=== PATIENT | female | born 1960 | race Caucasian/White ===

== ENCOUNTER → 2019-09-06 | Outpatient (CLI) | payer MEDICARE, MEDICAID ==
[~2019-09-06] MED LIST: BACL10TA2 PO; FAMC250T3 PO; FOLI20CA PO; METH2.5T48 PO; PLAQ200T4 PO; PROHANCE 279.3MG/ML 15ML VIAL (A9576) As Ordered ONE; RANI15TA PO
--- NOTE | 2019-09-06 18:05 | REP ---
MRI brain: 09/06/2019. Indication: Lung carcinoma. Metastatic workup. Comparison: None. Findings: There are no areas of restricted diffusion or pathologic gadolinium enhancement. There is no intracranial mass effect or hydrocephalous. The large intracranial flow voids are unremarkable. There is no evidence of intracranial hemorrhage. No significant signal abnormalities are present within the brainstem or brain parenchyma. There are no areas of pathologic gadolinium enhancement. Impression: No acute intracranial process or evidence of intracranial metastatic disease. Electronically Signed by Sidney Harris DO 09/06/2019 05:56 P
== END ==
LOC: M RAD 15:50
PROVIDERS: ATTEND Nurse Practitioner Family
DX: C34.90 Malignant neoplasm of unspecified part of unspecified bronchus or lung (principal)
CPT/HCPCS: 70553; A9576

== ENCOUNTER → 2019-09-11 | Outpatient (CLI) | payer MEDICARE, MEDICAID ==
[~2019-09-11] MED LIST changes: +DECA4TAB PO; +LIDOCAINE 1% MDV 20ML VIAL As Ordered ONE; +MIDAZOLAM INJ 2 MG/2 ML VIAL (J2250) As Ordered ONE; +OLAN10TA2 PO; +OMEP40CA97 PO; +ONDA8TAB7 PO; +PROC10TA4 PO; -PROHANCE 279.3MG/ML 15ML VIAL (A9576) As Ordered ONE; +ceFAZolin 1GM INJ (J0690 PER 500MG) As Ordered ONE; +diphenhydrAMINE INJ 50MG/ML VIAL (J1200) As Ordered ONE; +fentaNYL 100 MCG/2 ML INJECTION (J3010) As Ordered ONE
--- NOTE | 2019-09-11 14:40 | IRHP ---
[facility] IR Pre-Procedure H & P General Date of Service: Sep 11, 2019 Procedure: Same Day Surgery Interval History and Physical I have seen the patient and reviewed last H & P performed within 30 days. There is no significant interval change. History of Present Illness Chief Complaint The patient is a 59-year-old female admitted with a reason for visit of Lung Ca. PRE-PROCEDURE DIAGNOSIS: lung ca HEART: normal rate. LUNGS: normal breathing at rest. ASA Classification ASA Classification: II-Mild systemic disease Mallampati Score: I NPO: Yes Problems with prior sedation: No Obstructive Sleep Apnea: No Plan moderate sedation Allergies Coded Allergies: infliximab (Verified Allergy, Intermediate, RASH, 08/31/19) latex (Verified Allergy, Intermediate, RASH, 08/31/19) MS - Codeine (Unverified Adverse Reaction, Unknown, INSOMNIA,FEELS ABNORMAL, 02/15/13) Home Medications Scheduled Famciclovir (Famciclovir), 1 TAB PO BID, (Reported) Folic Acid (Folic Acid), 1 CAP PO DAILY, (Reported) Ranitidine Hcl (Ranitidine HCl), 1 TAB PO BID, (Reported) Miscellaneous Medications Baclofen (Baclofen), 10 MG PO, (Reported) Hydroxychloroquine Sulfate (Plaquenil), 200 MG PO, (Reported) Discontinued Medications Methotrexate Sodium (Methotrexate), 8 TAB PO Q7D, (Reported) Discontinued Reason: Pt states not taking VS, I&O, 24H, Fishbone Vital Signs/I&O Vital Signs Date Time Temp Pulse Resp B/P (MAP) Pulse Ox O2 Delivery O2 Flow Rate FiO2 09/11/19 13:56 97.3 98 18 98 Room Air TITI LARA MD Sep 11, 2019 14:40
--- NOTE | 2019-09-11 15:35 | POST-OPPD ---
Postoperative Procedure Note Date Of Procedure: Sep 11, 2019 Time Of Procedure: 15:34 PREOPERATIVE DIAGNOSIS: lung cancer. prior right axillary dissection for breast ca POSTOPERATIVE DIAGNOSIS: lung cancer. prior right axillary dissection for breast ca FINDINGS: patent left IJ PROCEDURE: left IJ port. see full report under imaging tab. SURGEON: xochitl ANESTHESIA: mod sed ESTIMATED BLOOD LOSS: < 5 ml COMPLICATIONS: none POSTOPERATIVE CONDITION: stable TITI LARA MD Sep 11, 2019 15:35
--- NOTE | 2019-09-11 15:57 | REP ---
IR Ultrasound and fluoroscopy-guided port placement. IR Ultrasound of the neck. IR Moderate sedation. Clinical information: Lung cancer. Prior right axillary lymph node dissection for breast cancer . Physician: Dr. Soto. Procedure: The patient was advised of the benefits, risks, and alternatives of the procedure and informed consent was obtained. A time-out was performed with verification of the patient's name, MRN, site of procedure and type of procedure to be performed. The patient was positioned in the supine position on the angiographic table. The site was prepped and draped in the usual sterile fashion. Moderate sedation was performed by the physician including the presence of an independent trained observer who assisted and monitored the patient's level of consciousness and physiologic status. Following the administration of fentanyl and Versed , the physician spent 45 minutes of continuous face to face time with the patient. Ultrasound of the left neck reveals a patent and compressible left internal jugular vein. A drapery inspector radiograph reveals opacities over the right hemithorax . The neck and anterior chest wall were anesthetized with lidocaine. The left internal jugular vein was accessed using a microintroducer needle under ultrasound guidance, via a lateral approach. An 018 wire was advanced into the superior vena cava, the needle was removed and a microsheath was placed. An Amplatz wire was then passed into the inferior vena cava. An incision at the internal jugular vein access site and anterior chest wall were made using a scalpel. An incision was made at the anterior chest wall. A small pocket was created using a combination of blunt and sharp dissection. A tunneling device was then used to pass the catheter from the pocket to the neck puncture site. An 8-Cam[place]onian Angio DataGravity Smart power port was then positioned in the pocket. The catheter was then measured and cut. The introducer sheath was exchanged for a peel-away sheath. The catheter was passed through the peel-away sheath into the internal jugular vein and the peel-away sheath was removed. The port tip was positioned at the cavoatrial junction. The port was then accessed with a Gomez needle. The port flushes and aspirates well. The puncture site in the neck was closed. The chest wall incision was then closed with 2-0 Vicryl and 4-0 Monocryl. Glue and Steri-Strips were applied. A sterile dressing was then applied. The patient tolerated the procedure well and was returned to the PRU in stable condition. Estimated blood loss: <5 ml. Complications: None. Conclusion: 1. Successful placement of an 8-Cam[place]onian Angio dynamics power port via the left internal jugular vein. The port is ready for immediate use. 2. Patient to follow up in IR clinic in 2 weeks. Thank you for this referral. Electronically Signed by Joellen Soto MD 09/11/2019 03:56 P
[2019-09-11 17:00] VITALS: BP 124/82
== END ==
LOC: M IRPRO 13:09
PROVIDERS: ATTEND Nurse Practitioner Family
DX: C34.90 Malignant neoplasm of unspecified part of unspecified bronchus or lung (principal); Z85.3 Personal history of malignant neoplasm of breast; Z88.5 Allergy status to narcotic agent; Z88.8 Allergy status to other drugs, medicaments and biological substances; Z91.040 Latex allergy status
CPT/HCPCS: 36561; 76937; 99152; 99153; C1769; C1788; C1894; J0690; J1200; J2250; J3010

== ENCOUNTER → 2019-10-03 | Outpatient (POV) | payer MEDICARE, MEDICAID ==
[~2019-10-03] VITALS: Ht 165.1 cm; Wt 75.9 kg
[~2019-10-03] MED LIST changes: -LIDOCAINE 1% MDV 20ML VIAL As Ordered ONE; -MIDAZOLAM INJ 2 MG/2 ML VIAL (J2250) As Ordered ONE; -ceFAZolin 1GM INJ (J0690 PER 500MG) As Ordered ONE; -diphenhydrAMINE INJ 50MG/ML VIAL (J1200) As Ordered ONE; -fentaNYL 100 MCG/2 ML INJECTION (J3010) As Ordered ONE
[2019-10-03 10:00] VITALS: BP 129/87
--- NOTE | 2019-10-04 08:19 | IRPN ---
[facility] IR Progress Note IR Progress Note DATE: Oct 03, 2019 FOLLOW-UP: Status post port placement. Patient doing well. No fevers or chills. Port site has not been accessed yet. ON EXAMINATION: Port site looks to be healing well. No tenderness. No redness. No discharge no fluctuance. IMPRESSION: Port site healing well. Has not been used yet. Port was flushed and instilled with heparin today. No further follow-up required unless initiated by patient or referring provider. Thank you for this referral Allergies Coded Allergies: infliximab (Verified Allergy, Intermediate, RASH, 08/31/19) latex (Verified Allergy, Intermediate, RASH, 08/31/19) codeine (Unverified Adverse Reaction, Unknown, insomnia, feels abnormal, 09/18/19) VS,Fishbone, I+O VS, Fishbone, I+O Vital Signs Date Time Temp Pulse Resp B/P (MAP) Pulse Ox O2 Delivery O2 Flow Rate FiO2 10/03/19 10:00 98.0 80 16 129/87 (101) 98 Room Air TITI LARA MD Oct 04, 2019 08:19
== END ==
LOC: M IRPOV 09:40
PROVIDERS: ATTEND Radiology Diagnostic Radiology
DX: Z45.2 Encounter for adjustment and management of vascular access device (principal); Z88.5 Allergy status to narcotic agent; Z88.8 Allergy status to other drugs, medicaments and biological substances; Z91.040 Latex allergy status

== ENCOUNTER → 2019-10-24 | Outpatient (CLI) | payer MEDICARE, MEDICAID ==
[~2019-10-24] MED LIST changes: +ISOVUE-370 76% 100ML VIAL (Q9967) As Ordered ONE
--- NOTE | 2019-10-25 13:00 | REP ---
CT chest with IV contrast: History: Non-small cell lung carcinoma. Adenocarcinoma right middle lobe with lymphadenopathy on neoadjuvant chemotherapy. No comparison CTs are available. There is also a history of prior breast carcinoma. CT contrast dose: 75 mL of intravenous Isovue [address] findings: Postoperative changes are noted in the right breast soft tissues and clips are visible in the right axilla and right breast soft tissues. There is a left-sided Obecas-H-Sjlf catheter noted in place. There is no evidence of pleural or pericardial effusion. No adrenal lesion is seen. Visualized upper abdominal structures are unremarkable. There are postcholecystectomy clips. No hilar or mediastinal mass is seen. No adenopathy is noted. There is a 2.2 cm ground-glass opacity nodule in the right upper lobe in a peribronchovascular distribution. This merits followup. There are smaller ground-glass opacities noted elsewhere in the right upper lobe and there are two ill-defined ground-glass opacities in the lingular segment of the left upper lobe. In addition, there is a somewhat spiculated nodular density in the right middle lobe with some surrounding fibrotic stranding to the pleura. This measures 17 x 17 x 12 mm. There is a questionable 4 mm nodule in the right upper lobe on page 21 of 111 series 201 of today's study. There is a tiny 2-3 mm nodule in the right lower lobe anteriorly on page 65. There is some pleuroparenchymal fibrosis in the right upper lobe adjacent to the right breast. Question prior radiation therapy. No bony destructive lesion is seen. Impression: No comparison CT studies could be located. There is a 17 mm spiculated opacity in the right middle lobe with some adjacent fibrotic stranding. There is a 22 mm ground-glass opacity in the right upper lobe with two or three other smaller ground-glass opacities seen. These merit followup. Postsurgical changes right breast. No adenopathy is seen. Electronically Signed by Bhupinder Vazquez MD 10/25/2019 05:39 P
== END ==
LOC: M RAD 13:39
PROVIDERS: ATTEND Internal Medicine Medical Oncology
DX: C34.90 Malignant neoplasm of unspecified part of unspecified bronchus or lung (principal)
CPT/HCPCS: 71260; Q9967

== ENCOUNTER → 2019-11-14 | Outpatient (CLI) | payer MEDICARE, MEDICAID ==
[~2019-11-14] MED LIST changes: -ISOVUE-370 76% 100ML VIAL (Q9967) As Ordered ONE; +PRED10TA2 PO
--- NOTE | 2019-11-15 12:57 | REP ---
PET/CT: History: Restaging non-small cell lung cancer. The patient is status post two cycles of preoperative chemotherapy, assess response to treatment. Comparisons: No comparison PET/CT. Comparison CT study of the chest is from October 24, 2019. TECHNIQUE: 54 minutes following the intravenous injection of a 8.89 mCi dose of F-18 FDG, three-dimensional PET scintigraphy is acquired from the skull base to the proximal thighs. Triplanar noncontrast CT scanning is acquired through the same anatomic range for attenuation correction, and image registration with scan parameters optimized to minimize radiation exposure to the patient. PET scintigraphy and CT datasets were fused and displayed on a workstation with multiplanar and projection display capability. PET/CT Findings: Head and neck soft tissues are unremarkable. No abnormal uptake. There is a left-sided Pmgzqq-G-Elac catheter. The gallbladder is surgically absent. Fibroid uterus is seen without abnormal hypermetabolic uptake within it or elsewhere in the pelvis. Abdominal and pelvic distribution of tracer is felt to be normal. No abnormal hypermetabolic uptake is seen in the adrenals. There is hypermetabolic uptake in the spiculated right middle lobe nodule seen on recent chest CT study. Maximum standard uptake value here is 7.02. In addition, there is hypermetabolic dilia uptake in the right inferior hilus, maximum standard uptake value 5.37. No adenopathy is visible on the accompanying noncontrast CT nor on recent chest CT with contrast. There is also however, hypermetabolic dilia uptake in the small right subcarinal lymph node, maximum standard uptake value in this node is 9.56. None of the recently identified ground-glass opacities is visualized on today's accompanying chest CT including the largest one in the right upper lobe. This appears to have resolved. No other abnormal hypermetabolic uptake is seen within the thorax. Impression: There is hypermetabolic uptake in the right middle lobe spiculated nodule as well as in a right hilar and a right subcarinal dilia focus. No other abnormal hypermetabolic uptake is seen. Electronically Signed by Bhupinder Vazquez MD 11/15/2019 06:23 P
== END ==
LOC: M PLARAD 08:22
PROVIDERS: ATTEND Internal Medicine Medical Oncology
DX: C34.2 Malignant neoplasm of middle lobe, bronchus or lung (principal)
CPT/HCPCS: 78815; A9552

== ENCOUNTER → 2019-11-17 | Outpatient (CLI) | payer MEDICARE, MEDICAID ==
[~2019-11-17] MED LIST changes: +ISOVUE-370 76% 100ML VIAL (Q9967) As Ordered ONE
--- NOTE | 2019-11-17 09:12 | REP ---
CT brain: 11/17/2019. Indication: Ataxia. History of small cell lung carcinoma. Comparison: 09/06/2019. Technique: Axial CT images of the brain were obtained from skull base to vertex with and without IV contrast. 75 ml IV Isovue 370 were administered. Findings: There is no acute intracranial hemorrhage, acute cortical infarction, mass effect, hydrocephalus or pathologic intracranial enhancement. Minimal diffuse volume loss is redemonstrated. Impression: No acute intracranial process or evidence of intracranial metastatic disease. Electronically Signed by Sidney Harris DO 11/17/2019 09:03 A
== END ==
LOC: M RAD 08:13
PROVIDERS: ATTEND Internal Medicine Medical Oncology
DX: C34.90 Malignant neoplasm of unspecified part of unspecified bronchus or lung (principal)
CPT/HCPCS: 70470; Q9967

== ENCOUNTER → 2020-09-03 | Outpatient (POV) | payer MEDICARE, MEDICAID ==
[~2020-09-03] MED LIST changes: +FAMC250T PO; -FAMC250T3 PO; +HYDROCHLOROQUINE PO; -ISOVUE-370 76% 100ML VIAL (Q9967) As Ordered ONE; +ONDA8TAB10 PO; -ONDA8TAB7 PO
--- NOTE | 2020-09-04 11:07 | IRPN ---
[facility] IR Progress Note IR Progress Note DATE: Sep 03, 2020 Patient agreed to this telephone follow-up. Duration of call 5 minutes. FOLLOW-UP: Status post port placement 1 year ago in August. Patient has since completed therapy. She remains under follow-up with radiation oncology at [facility]. She has been discharged from medical oncology services. No further chemotherapy is planned. Patient would now like the port to be removed. IMPRESSION: We discussed the risks and benefits of the procedure patient would like to proceed. We'll schedule the patient for port removal. Thank you for this referral Allergies Coded Allergies: infliximab (Verified Allergy, Intermediate, RASH, 08/31/19) latex (Verified Allergy, Intermediate, RASH, 08/31/19) codeine (Unverified Adverse Reaction, Unknown, insomnia, feels abnormal, 09/18/19) TITI LARA MD Sep 04, 2020 11:07
== END ==
LOC: M TMIRPOV 09:49
PROVIDERS: ATTEND Radiology Diagnostic Radiology
DX: Z45.2 Encounter for adjustment and management of vascular access device (principal)

== ENCOUNTER → 2020-09-12 | Outpatient (CLI) | payer MEDICARE, MEDICAID ==
[~2020-09-12] MED LIST changes: +LIDOCAINE 1% MDV 20ML VIAL As Ordered ONE; +MIDAZOLAM INJ 2MG/2ML VIAL (J2250 PER 1MG) As Ordered ONE; +ceFAZolin 1GM VIAL (J0690 PER 500MG) As Ordered ONE; +diphenhydrAMINE 50MG/ML VIAL (J1200) As Ordered ONE; +fentaNYL 100 MCG/2 ML INJECTION (J3010) As Ordered ONE
--- NOTE | 2020-09-12 12:19 | IRHP ---
[facility] IR Pre-Procedure H & P General Date of Service: Sep 12, 2020 Procedure: Same Day Surgery Interval History and Physical I have seen the patient and reviewed last H & P performed within 30 days. There is no significant interval change. History of Present Illness Chief Complaint The patient is a 60-year-old female admitted with a reason for visit of Lung Ca. PRE-PROCEDURE DIAGNOSIS: lung ca. treatment complete. HEART: normal rate. LUNGS: normal breathing at rest.. ASA Classification ASA Classification: III-Severe systemic dis. Mallampati Score: II NPO: Yes Problems with prior sedation: No Obstructive Sleep Apnea: No Plan moderate sedation Allergies Coded Allergies: infliximab (Verified Allergy, Intermediate, RASH, 08/31/19) latex (Verified Allergy, Intermediate, RASH, 08/31/19) adalimumab (Verified Allergy, Unknown, 09/11/20) codeine (Unverified Adverse Reaction, Unknown, insomnia, feels abnormal, 09/18/19) Home Medications Scheduled Famciclovir (Famciclovir), 1 TAB PO BID, (Reported) Folic Acid (Folic Acid), 1 CAP PO DAILY, (Reported) Methotrexate Sodium (Methotrexate), 2.5 MG PO Q7D, (Reported) Omeprazole (Omeprazole), 40 MG PO DAILY, (Reported) [Hydrochloroquine], 200 MG PO BID, (Reported) Scheduled PRN Baclofen (Baclofen), 10 MG PO TIDP PRN for MUSCLE SPASMS, (Reported) Discontinued Medications Ondansetron HCl (Ondansetron HCl), 8 MG PO Q6H PRN for NAUSEA OR VOMITING Discontinued Reason: Pt states not taking Prochlorperazine Maleate (Prochlorperazine Maleate), 10 MG PO Q8MP PRN for NAUSEA OR VOMITING Discontinued Reason: Pt states not taking VS, I&O, 24H, Fishbone Vital Signs/I&O Vital Signs Date Time Temp Pulse Resp B/P (MAP) Pulse Ox O2 Delivery O2 Flow Rate FiO2 09/12/20 11:42 97.7 65 16 96 Room Air TITI LARA MD Sep 12, 2020 12:19
--- NOTE | 2020-09-12 13:13 | POST-OPPD ---
Postoperative Procedure Note Date Of Procedure: Sep 12, 2020 Time Of Procedure: 13:05 Port Removal / Explant Clinical Information:Lung cancer. Treatment complete. Physician: Dr. Soto Procedure: The patient was advised of the benefits, risks, and alternatives of the procedure and informed consent was obtained. A time out was performed with verification of the patient's name, MRN, site of procedure, and type of procedure to be performed. The patient was positioned in the supine position on the angiographic table. The site was prepped and draped in the usual sterile fashion. Moderate sedation was performed by the physician including the presence of an independent trained RN who assisted in monitoring the patient's level of consciousness and physiological status. Following the administration of fen tanyl and Versed the physician spent 30 minutes of continuous rrss-[id number]-[id number] time with the patient. A commercial sales manager radiograph reveals a left sided port. The soft tissues overlying the port were anesthetized with lidocaine. An incision was made over the port using a 15 blade scalpel in the location of the prior incision. The catheter was then freed with blunt dissection and extracted. Pressure was applied to obtain hemostasis. The port was then freed with blunt dissection and subsequently removed. There were no signs of infection. After hemostasis was achieved, the incision was closed with interrupted deep 3-0 Vicryl sutures and subcuticular Monocryl suture followed by glue and steri-strips. The site was covered with a sterile dressing. The patient tolerated the procedure well and was returned to the PRU in stable condition. EBL:Less than 5 mL Complications:None. Conclusions: 1. Successful explant of a left sided port. 2. No signs of infection. Thank you for this referral TITI SOTO MD Sep 12, 2020 13:13
[2020-09-12 14:36] VITALS: BP 121/78
== END ==
LOC: M IRPRO 11:33
PROVIDERS: ATTEND Radiology Diagnostic Radiology
DX: Z45.2 Encounter for adjustment and management of vascular access device (principal); C34.90 Malignant neoplasm of unspecified part of unspecified bronchus or lung; Z88.5 Allergy status to narcotic agent; Z88.8 Allergy status to other drugs, medicaments and biological substances; Z91.040 Latex allergy status
CPT/HCPCS: 36590; 99152; 99153; J0690; J1644; J2250; J3010